=== PATIENT | male | born 1950 | race Caucasian/White ===

== ENCOUNTER 2021-08-09 11:38 | Outpatient (REF) | payer OTHER, SELFPAY ==
[2021-08-09 14:06] LABS: Hematocrit 43.4 % (42-52); Hemoglobin 14.4 g/dl (14.0-18.0); Mean Corpuscular HGB Conc 33.2 g/dl (31.0-36.0); Mean Corpuscular Hemoglobin 32.1 pg (27.0-33.0); Mean Corpuscular Volume 96.7 fL (80-98); Mean Platelet Volume 11.1 fL (9.4-12.4); Platelet Count 230 X10*3/uL (160-400); Red Blood Count 4.49 X10*6/uL (4.60-5.80); Red Cell Distribution Width 12.4 % (11.0-16.0); White Blood Count 6.6 X10*3/uL (4.8-10.8)
[2021-08-09 14:34] LABS: Alanine Aminotransferase 19 U/L (0-40); Anion Gap 12 (12-20); Aspartate Amino Transferase 19 U/L (5-37); Blood Urea Nitrogen 18 mg/dL (9-16); Calcium 9.7 mg/dL (8.4-10.2); Carbon Dioxide 28 mmol/L (22-29); Chloride 105 mmol/L (96-108); Estimated Glomerular Filt Rate > 60; Glucose Fasting 92 mg/dL (60-99); Potassium 4.9 mmol/L (3.3-5.1); Sodium 140 mmol/L (135-145); Total Protein 6.9 g/dL (6.5-8.0)
[2021-08-09 14:35] LABS: Albumin Level 4.6 g/dL (3.5-5.0); Alkaline Phosphatase 66 U/L (39-117); Cholesterol 153 mg/dL; HDL Cholesterol 48 mg/dL; LDL Cholesterol Calculated 92 mg/dl; Triglycerides 68 mg/dL
[2021-08-09 14:43] LABS: Prostate Specific Antigen Scr < 0.05 ng/mL (<0.05-4.0)
== END 2021-08-09 11:39 | disposition home or self-care (01) ==
LOC: HO.HMGCLDS 11:38
PROVIDERS: PCP Internal Medicine; Visit Provider Internal Medicine
DX: Z12.5 Encounter for screening for malignant neoplasm of prostate (principal); E78.5 Hyperlipidemia, unspecified; I25.10 Atherosclerotic heart disease of native coronary artery without angina pectoris
CPT/HCPCS: 36415; 80053; 80061; 84153; 85027

== ENCOUNTER 2021-08-23 07:13 | Outpatient (REF) | payer OTHER, SELFPAY ==
--- NOTE | ~2021-08-23 | XR_ITS ---
EXAMINATION: XR SHOULDER, RIGHT CLINICAL INFORMATION: Pain. COMPARISON: None TECHNIQUE: Three views of the right shoulder. FINDINGS: There is mild acromioclavicular osteoarthritis. Glenohumeral joint is well preserved. No fracture. Alignment is anatomic. Soft tissues are normal with no abnormal calcifications. XR/XR shoulder RT min 2V IMPRESSION: No acute fractures or malalignment. Mild acromioclavicular osteoarthritis.
== END 2021-08-23 07:14 | disposition home or self-care (01) ==
LOC: HO.HOSX 07:13
PROVIDERS: Visit Provider Physician Assistant
DX: M75.101 Unspecified rotator cuff tear or rupture of right shoulder, not specified as traumatic (principal)
CPT/HCPCS: 73030; J1040

== ENCOUNTER → 2021-10-04 08:33 | Outpatient (BNVA) | payer OTHER, SELFPAY | PROVIDERS: Visit Provider Physician Assistant ==

== ENCOUNTER → 2021-10-11 10:45 | Outpatient (BNVA) | payer OTHER, SELFPAY | PROVIDERS: Referring Provider Internal Medicine; Visit Provider Nurse Practitioner Family ==

== ENCOUNTER 2021-12-01 09:00 | Outpatient (RCR) | payer OTHER, SELFPAY ==
--- NOTE | 2021-11-01 09:58 | MHC.PT.EP ---
[facility] [place] Office [place] Office [place] Office [address] [phone] F: [phone] F: [phone] F: [phone] F: [phone] Physical Therapy Plan of Care Date of Evaluation: Date of Surgery: n/a Diagnosis: Rupture of R shoulder Assessment: Patient is a 71 year old R handed male who presents with s/s consistent with R shoulder pain. He does not work but likes to tend to his house and run errands. Patient past medical history includes NM and prostate cancer. Current impairments include pain, posture, ROM, strength, activity tolerance and functional mobility. Functional limitations include decreased ability to reaching overhead, behind back, carrying, pushing, pulling, changing light bulbs, sleeping on R side, and perform weight bearing activities.. Patient is motivated with good rehab potential. Skilled PT will address impairments and functional limitations in order to achieve goals. Frequency and Duration: The patient will be seen 2x/week for 5 weeks Short Term Goals: I with HEP - 2 weeks AROM flexion 120, abd 120 - 3 weeks ER to 55 - 3 weeks Half-Way Goals: Restore R ER/IR strength to 4-/5 - 5 weeks ER/IR arc to 145 - 5 weeks Flex/abd AROM to 140 - 5 weeks Treatment Plan: Modalities to reduce pain, spasms and effusion. Manual therapy to restore motion and function. Therapeutic exercise to improve strength and flexibility. Neuromuscular re-education for posture and balance. Therapeutic activities to return to functional activities of daily living. Electronically signed by: Duong Quinn PT Please sign and return to therapist. Thank you for your referral.
--- NOTE | 2022-05-12 13:49 | MHC.PT.DC ---
[facility] [place] Office [place] Office [place] Office [address] Saab [address] [phone] F: [phone] F: [phone] F: [phone] F: [phone] Physical Therapy Discharge Report Diagnosis: Rupture of R shoulder Date of Surgery: n/a Date of Evaluation: 11/01/21 Date of Discharge: 01/12/22 Treatments to Date: 4 Cancellations to Date: 0 No Shows to Date: 0 Discharge Status: Patient Elected to Stop Discharge Summary: Pt did not return after last visit and has fair/poor compliance with HEP and progress in formal PT. 12/01: Significant time w/ income tax consultant for discussion: he reports fair-poor HEP compliance thus far, states his pain is about the same and actually worse after his injection, encouraged to re-schedule f/u with orthopedics he had cancelled. ed on pain limited exercise and daily activity, HEP in pain limited capacity, limiting over use activities. 11/24/21: pt returns after illness. progressed some with ROM, strength. Still with significant shoulder tissue tension. 11/03/21: GH head ant in joint, to continue joint mobs p/a. continue to progress intervention for posture, ROM. Patient is a 71 year old R handed male who presents with s/s consistent with R shoulder pain. He does not work but likes to tend to his house and run errands. Patient past medical history includes AR and prostate cancer. Current impairments include pain, posture, ROM, strength, activity tolerance and functional mobility. Functional limitations include decreased ability to reaching overhead, behind back, carrying, pushing, pulling, changing light bulbs, sleeping on R side, and perform weight bearing activities.. Patient is motivated with good rehab potential. Skilled PT will address impairments and functional limitations in order to achieve goals. Electronically signed by: Duong Quinn, PT Please sign and return to therapist. Thank you for your referral.
== END 2022-05-12 13:49 | disposition home or self-care (01) ==
LOC: HO.PTCHIC 09:00
PROVIDERS: Visit Provider Physician Assistant
DX: M75.101 Unspecified rotator cuff tear or rupture of right shoulder, not specified as traumatic (principal)
CPT/HCPCS: 97110; 97140; 97162

== ENCOUNTER 2021-12-18 09:12 | Outpatient (REF) | payer OTHER, SELFPAY ==
[2021-12-18 11:04] LABS: MANUAL DIFF FLAG NO
[2021-12-18 11:16] LABS: Basophils Percent Auto 0.5 % (0-2); Eosinophils Absolute Auto 0.1 X10*3/uL (0.0-0.4); Eosinophils Percent Auto 1.7 % (0-4); Hemoglobin 14.1 g/dl (14.0-18.0); Imm Gran Abs Auto 0.02 X10*3/uL (0.00-0.03); Imm Gran Pct Auto 0.3 % (0.0-0.4); Lymphocytes Absolute Auto 1.4 X10*3/uL (1.2-4.9); Lymphocytes Percent Auto 23.9 % (20-40); Mean Corpuscular HGB Conc 32.8 g/dl (31.0-36.0); Mean Corpuscular Hemoglobin 32.3 pg (27.0-33.0); Mean Corpuscular Volume 98.6 fL (80.0-98.0); Mean Platelet Volume 11.3 fL (9.4-12.4); Monocytes Absolute Auto 0.7 X10*3/uL (0.1-1.2); Monocytes Percent Auto 11.3 % (2-11); Neutrophils Absolute Auto 3.8 x10*3/uL (2.0-8.3); Neutrophils Percent Auto 62.3 % (45-73); Platelet Count 201 X10*3/uL (160-400); Red Blood Count 4.36 X10*6/uL (4.60-5.80); Red Cell Distribution Width 11.9 % (11.0-16.0)
[2021-12-18 11:41] LABS: Anion Gap 11 (12-20); Blood Urea Nitrogen 17 mg/dL (9-16); Calcium 9.7 mg/dL (8.4-10.2); Carbon Dioxide 29 mmol/L (22-29); Chloride 106 mmol/L (96-108); Cholesterol 143 mg/dL; Estimated Glomerular Filt Rate > 60; Glucose Random 95 mg/dL (60-115); HDL Cholesterol 41 mg/dL; LDL Cholesterol Calculated 85 mg/dl; Potassium 4.6 mmol/L (3.3-5.1); Sodium 141 mmol/L (135-145); Triglycerides 85 mg/dL
== END 2021-12-18 09:13 | disposition home or self-care (01) ==
LOC: HO.HMGCLDS 09:12
PROVIDERS: PCP Internal Medicine; Visit Provider Nurse Practitioner Family
DX: I25.2 Old myocardial infarction (principal)
CPT/HCPCS: 36415; 80048; 80061; 85025

== ENCOUNTER 2022-04-04 08:31 | Outpatient (REF) | payer OTHER, SELFPAY ==
[2022-04-04 11:31] LABS: Hematocrit 42.3 % (42.0-52.0); Hemoglobin 13.9 g/dl (14.0-18.0); Mean Corpuscular HGB Conc 32.9 g/dl (31.0-36.0); Mean Corpuscular Hemoglobin 32.1 pg (27.0-33.0); Mean Corpuscular Volume 97.7 fL (80.0-98.0); Mean Platelet Volume 11.8 fL (9.4-12.4); Platelet Count 193 X10*3/uL (160-400); Red Blood Count 4.33 X10*6/uL (4.60-5.80); Red Cell Distribution Width 12.7 % (11.0-16.0); White Blood Count 5.1 X10*3/uL (4.8-10.8)
[2022-04-04 11:48] LABS: Alanine Aminotransferase 35 U/L (0-40); Albumin Level 4.6 g/dL (3.5-5.0); Alkaline Phosphatase 62 U/L (39-117); Anion Gap 12 (12-20); Aspartate Amino Transferase 29 U/L (5-37); Bilirubin Total 0.5 mg/dL (0.0-1.0); Blood Urea Nitrogen 19 mg/dL (9-16); Carbon Dioxide 28 mmol/L (22-29); Chloride 103 mmol/L (96-108); Cholesterol 155 mg/dL; Estimated Glomerular Filt Rate > 60; Glucose Fasting 96 mg/dL (60-99); HDL Cholesterol 51 mg/dL; LDL Cholesterol Calculated 88 mg/dl; Potassium 4.4 mmol/L (3.3-5.1); Sodium 139 mmol/L (135-145); Total Protein 7.2 g/dL (6.5-8.0); Triglycerides 84 mg/dL
== END 2022-04-04 08:32 | disposition home or self-care (01) ==
LOC: HO.HMGCLDS 08:31
PROVIDERS: Visit Provider Internal Medicine
DX: I25.10 Atherosclerotic heart disease of native coronary artery without angina pectoris (principal); I42.9 Cardiomyopathy, unspecified; E78.5 Hyperlipidemia, unspecified
CPT/HCPCS: 36415; 80053; 80061; 85027

== ENCOUNTER 2022-04-26 14:35 | Outpatient (REF) | payer OTHER, SELFPAY ==
[2022-04-26 15:27] LABS: Influenza A PCR NEGATIVE (Negative); Influenza B PCR NEGATIVE (Negative); Resp Syncy Virus RNA Qual PCR NEGATIVE (Negative); SARS COV2 PCR INHOUSE POSITIVE (Negative)
== END 2022-04-26 14:36 | disposition home or self-care (01) ==
LOC: HO.LNP 14:35
PROVIDERS: Visit Provider Physician Assistant
DX: Z20.822 Contact with and (suspected) exposure to COVID-19 (principal); J06.9 Acute upper respiratory infection, unspecified
CPT/HCPCS: 0241U

== ENCOUNTER 2023-01-14 08:36 | Outpatient (REF) | payer OTHER, SELFPAY ==
[2023-01-14 11:43] LABS: MANUAL DIFF FLAG NO
[2023-01-14 11:48] LABS: Basophils Percent Auto 0.5 % (0-2); Eosinophils Absolute Auto 0.1 X10*3/uL (0.0-0.4); Eosinophils Percent Auto 1.7 % (0-4); Hematocrit 42.8 % (42.0-52.0); Imm Gran Abs Auto 0.01 X10*3/uL (0.00-0.03); Imm Gran Pct Auto 0.2 % (0.0-0.4); Lymphocytes Absolute Auto 1.5 X10*3/uL (1.2-4.9); Mean Corpuscular HGB Conc 32.7 g/dl (31.0-36.0); Mean Corpuscular Hemoglobin 32.3 pg (27.0-33.0); Mean Corpuscular Volume 98.6 fL (80.0-98.0); Mean Platelet Volume 11.2 fL (9.4-12.4); Monocytes Absolute Auto 0.8 X10*3/uL (0.1-1.2); Monocytes Percent Auto 13.1 % (2-11); Neutrophils Absolute Auto 3.5 x10*3/uL (2.0-8.3); Neutrophils Percent Auto 59.5 % (45-73); Platelet Count 204 X10*3/uL (160-400); Red Blood Count 4.34 X10*6/uL (4.60-5.80); Red Cell Distribution Width 12.2 % (11.0-16.0); White Blood Count 5.9 X10*3/uL (4.8-10.8)
[2023-01-14 12:07] LABS: Alanine Aminotransferase 47 U/L (0-40); Albumin Level 4.2 g/dL (3.5-5.0); Alkaline Phosphatase 61 U/L (39-117); Anion Gap 12 (12-20); Aspartate Amino Transferase 34 U/L (5-37); Bilirubin Total 0.7 mg/dL (0.0-1.0); Blood Urea Nitrogen 22 mg/dL (9-16); Calcium 9.3 mg/dL (8.4-10.2); Carbon Dioxide 28 mmol/L (22-29); Chloride 106 mmol/L (96-108); Cholesterol 161 mg/dL; Estimated Glomerular Filt Rate > 60; Glucose Fasting 94 mg/dL (60-99); HDL Cholesterol 53 mg/dL; LDL Cholesterol Calculated 90 mg/dl; Potassium 4.8 mmol/L (3.3-5.1); Sodium 141 mmol/L (135-145); Total Protein 6.6 g/dL (6.5-8.0); Triglycerides 93 mg/dL
[2023-01-14 12:27] LABS: TSH reflex Free T4 5.53 uIU/mL (0.32-4.0)
[2023-01-14 13:21] LABS: Free T4 (Free Thyroxine) 0.89 ng/dL (0.71-1.85)
== END 2023-01-14 08:37 | disposition home or self-care (01) ==
LOC: HO.HMGCLDS 08:36
PROVIDERS: PCP Internal Medicine; Visit Provider Internal Medicine
DX: I25.10 Atherosclerotic heart disease of native coronary artery without angina pectoris (principal); I48.91 Unspecified atrial fibrillation; R04.0 Epistaxis; E78.5 Hyperlipidemia, unspecified
CPT/HCPCS: 36415; 80053; 80061; 84439; 84443; 85025

== ENCOUNTER 2023-02-27 07:23 | Outpatient (REF) | payer OTHER, SELFPAY ==
[2023-02-27 12:27] LABS: TSH reflex Free T4 5.74 uIU/mL (0.32-4.0)
[2023-02-27 13:51] LABS: Free T4 (Free Thyroxine) 0.93 ng/dL (0.71-1.85)
[2023-02-28 14:09] LABS: Triiodothyronine T3 Free 3.2 pg/mL (2.3-4.2)
== END 2023-02-27 07:24 | disposition home or self-care (01) ==
LOC: HO.HMGCLDS 07:23
PROVIDERS: PCP Internal Medicine; Visit Provider Internal Medicine
DX: E03.9 Hypothyroidism, unspecified (principal)
CPT/HCPCS: 36415; 84439; 84443; 84481

== ENCOUNTER 2023-06-05 08:50 | Outpatient (REF) | payer OTHER, SELFPAY | END 2023-06-05 08:51 | disposition home or self-care (01) | LOC: HO.HMGCLDS 08:50 | PROVIDERS: PCP Internal Medicine; Visit Provider Internal Medicine | DX: E03.9 Hypothyroidism, unspecified (principal) | CPT/HCPCS: 36415; 84439; 84443 ==

== ENCOUNTER 2024-03-07 10:12 | Outpatient (AMB) | payer OTHER, SELFPAY ==
[2024-03-07 10:25] VITALS: BP 118/78; PULSE 81; O2SAT 98; BMI 27.1
--- NOTE | 2024-03-07 10:25 | A.OFFPC_ITS ---
Vital Signs 03/07/24 10:25 Height 5 ft 5 in Weight 163 lb BMI 27.1 BP 118/78 Blood Pressure Location Lt brachial Position Sitting Pulse 81 Pulse Source Pulse Oximeter Pulse Oximetry (%) 98 Oxygen Delivery Method Room Air Intake Visit Reasons: Annual PE Intake Note: Pt is here today for PE. Allergies No Known Allergies Allergy (Verified 03/07/24 10:25) Medication List - Last Reconciled 03/07/24 by Lucie Bowen MD aspirin 81 mg PO DAILY bisacodyl (Dulcolax (bisacodyl)) 10 mg (2 x 5 mg) PO ONCE 1 day losartan 25 mg PO DAILY metoprolol succinate ER 50 mg PO DAILY polyethylene glycol 3350 (Miralax) 238 grams PO ONCE rosuvastatin (Crestor) 40 mg PO DAILY Tobacco use date assessed: 03/07/24 Fall risk assessment: No Falls in past year Last assessed Fall Risk: 03/07/24 Dental Screening Dental Screen Date: 03/07/24 Did you have a dental visit in the last 12 months?: Yes Did you have a dental problem in the last 6 months where you did not have access to dental care?: No Was dental information given to patient?: Patient has dentist HPI Annual PE HPI0 Details Patient presents for physical PFSH Medical History (Updated 03/07/24 @ 15:35 by Lucie Bowen MD) Anxiety Cardiomyopathy A-fib Right shoulder pain Prostate CA Annual physical exam CAD (coronary artery disease) Hyperlipidemia History of kidney stones Surgical History Hx of cholecystectomy Hx of colonoscopy History of prostate surgery Family History Father No problems noted. Mother Heart problem Social History Housing: House Patient Tobacco Use Status: Never used Tobacco e-Cigarette/Vaping Use: Never Used Current occupational status: retired Current occupation: rt handed Cognitive needs: No Hearing needs: No Vision needs: Yes Questionnaire PHQ-9 Over the last 2 weeks, how often have you been bothered by any of the following problems? 1. Little interest or pleasure in doing things: not at all 2. Feeling down, depressed, or hopeless: not at all 3. Trouble falling or staying asleep, or sleeping too much: not at all 4. Feeling tired or having little energy: not at all 5. Poor appetite or overeating: not at all 6. Feeling bad about yourself - or that you are a failure or have let yourself or your family down: not at all 7. Trouble concentrating on things, such as reading the newspaper or watching television: not at all 8. Moving or speaking so slowly that other people could have noticed. Or the opposite - being so fidgety or restless that you have been moving around a lot more than usual: not at all 9. Thoughts that you would be better off or of hurting yourself in some way: not at all Total score: 0 Depression Screening Interpretation: Negative Depression Screening Done: Yes Source: Developed by Drs. Jose G Scherer, Janki Barbour, Cuate Coughlin and colleagues, with an educational nani from [employer]. Thrive Questionnaire Date Thrive assessed: 03/07/24 I am a: Patient What is your living situation today?: I have a steady place to live Within the past 12 months, did the food you bought not last and you didn't have the money to get more?: Never true Within the past 12 months, did you worry whether your food would run out before you got money to buy more?: Never true Do you have trouble paying for medicines?: No Do you have trouble getting transportation to medical appointments?: No Do you have trouble paying your heating and electricity bill?: No Do you have trouble taking care of your child, family member or friend?: No Do you have trouble with day-to-day activities such as bathing, preparing meals, shopping, managing finances, etc.?: No Are you currently unemployed and looking for a job?: No Are you interested in more education?: No Please select the resources that you would like help with: None THRIVE Score: 0 AUDIT C Alcohol Use Questionnaire (AUDIT-C) 1. How often do you have a drink containing alcohol?: Never 3. How often do you have six or more drinks on one occasion?: Never Total Score: 0 GABBY-7 AMB Questionnaire GABBY-7 Date GABBY - 7 assessed: 03/07/24 Feeling nervous, anxious, or on edge: 0 = Not at all Not being able to stop or control worryin = Not at all Worrying too much about different things: 0 = Not at all Trouble relaxin = Not at all Being so restless that it is hard to sit still: 0 = Not at all Becoming easily annoyed or irritable: 0 = Not at all Feeling afraid as if something awful might happen: 0 = Not at all Total GABBY-7 score (0-4 normal; 5-9 mild; 10-14 moderate; 15-21 severe): 0 Source: Developed by Drs. Jose G Scherer, Janki Barbour, Cuate Coughlin and colleagues, with an educational nani from [employer]. Review of Systems Const All systems reviewed & are unremarkable except as noted in HPI and below Reports no additional complaints Eyes Reports no additional complaints ENT Reports no additional complaints Card Reports no additional complaints Resp Reports no additional complaints GI Reports no additional complaints Reports no additional complaints Physical exam (Primary Care) Vital Signs: Last Vital Signs Pulse 81 03/07/24 10:25 BP 118/78 03/07/24 10:25 Pulse Ox 98 03/07/24 10:25 Oxygen Delivery Method Room Air 03/07/24 10:25 BMI result Body Mass Index 27.1 Tobacco/Smoking Status: Tobacco use Status Tobacco use date assessed 03/07/24 03/07/24 10:37 Patient Tobacco Use Status Never used Tobacco 03/07/24 10:37 e-Cigarette/Vaping Use Never Used 03/07/24 10:27 PHQ-9: PHQ-9 Score PHQ-9: Total score 0 03/07/24 11:16 Depression Screening Interpretation: Negative Thrive Assessment: Date of Thrive Assessment Date Thrive assessed 03/07/24 03/07/24 10:37 Const General: no acute distress HENMT Head: Yes normal to inspection Ears: hearing grossly normal bilaterally Face and sinus: Yes normal facial exam Throat: Yes posterior oropharynx normal Eyes General: appearance normal, both eyes and all related structures Neck Neck: Yes no lymphadenopathy and Yes supple Resp Effort & Inspection: normal respiratory effort Auscultation: clear to auscultation bilaterally Cardio Rhythm: regular rhythm Heart sounds: S1 normal heart sound present and S2 normal heart sound present GI Inspection: Yes normal to inspection Palpation (GI): Soft to palpation Percussion: Yes normal to percussion Auscultation: normal bowel sounds Assessment and Plan Assessment & Plan (1) Hyperlipidemia: Code(s): E78.5 - Hyperlipidemia, unspecified Plan: Continue crestor (2) Prostate CA: Comment: S/P prostactectomy 2010, f/u Dr. Stratton Code(s): C61 - Malignant neoplasm of prostate Plan: Follow-up with urology (3) A-fib: Comment: rate controlled, s/p Watchman procedure, f/u with [facility] Code(s): I48.91 - Unspecified atrial fibrillation Plan: Follow-up with cardiology off anticoagulation (4) Cardiomyopathy: Comment: Echo EF 35%,lat wall akinesis 02/15, f/u with Cardiology Code(s): I42.9 - Cardiomyopathy, unspecified Plan: Follow-up with Cardiology continue current medications (5) Hypothyroidism: Code(s): E03.9 - Hypothyroidism, unspecified Plan: Monitor TSH level Orders: Orders Comprehensive [facility]. Panel Fast Today C61 - Malignant neoplasm of prostate, E03.9 - Hypothyroidism, unspecified, E78.5 - Hyperlipidemia, unspecified, I42.9 - Cardiomyopathy, unspecified, I48.91 - Unspecified atrial fibrillation TSH reflex Free T4 Today C61 - Malignant neoplasm of prostate, E03.9 - Hypothyroidism, unspecified, E78.5 - Hyperlipidemia, unspecified, I42.9 - Cardiomyopathy, unspecified, I48.91 - Unspecified atrial fibrillation Lipid Panel Today C61 - Malignant neoplasm of prostate, E03.9 - Hypothyroidism, unspecified, E78.5 - Hyperlipidemia, unspecified, I42.9 - Cardiomyopathy, unspecified, I48.91 - Unspecified atrial fibrillation UA w Microscopic Today C61 - Malignant neoplasm of prostate, E03.9 - Hypothyroidism, unspecified, E78.5 - Hyperlipidemia, unspecified, I42.9 - Cardiomyopathy, unspecified, I48.91 - Unspecified atrial fibrillation Complete Blood Count Auto Diff Today C61 - Malignant neoplasm of prostate, E0 3.9 - Hypothyroidism, unspecified, E78.5 - Hyperlipidemia, unspecified, I42.9 - Cardiomyopathy, unspecified, I48.91 - Unspecified atrial fibrillation Comprehensive [facility]. Panel Fast 1 Year E03.9 - Hypothyroidism, unspecified, E78.5 - Hyperlipidemia, unspecified, I42.9 - Cardiomyopathy, unspecified Complete Blood Count Auto Diff 1 Year E03.9 - Hypothyroidism, unspecified, E78.5 - Hyperlipidemia, unspecified, I42.9 - Cardiomyopathy, unspecified Lipid Panel 1 Year E03.9 - Hypothyroidism, unspecified, E78.5 - Hyperlipidemia, unspecified, I42.9 - Cardiomyopathy, unspecified TSH reflex Free T4 1 Year E03.9 - Hypothyroidism, unspecified, E78.5 - Hyperlipidemia, unspecified, I42.9 - Cardiomyopathy, unspecified Referrals Cologuard Test Z12.11 - Encounter for screening for malignant neoplasm of colon, Z12.12 - Encounter for screening for malignant neoplasm of rectum Medications: Refilled rosuvastatin (Crestor) 40 mg PO DAILY 90 tabs 3RF Discontinued polyethylene glycol 3350 (Miralax) As directed by gastroenterology department at [facility] Discontinued Reason: Doctor's Order 238 grams PO ONCE 238 grams 0RF Z12.11 - Encounter for screening for malignant neoplasm of colon Coding Level of Care Code Est Pt Prev Care >65y(93674) Diagnoses Hyperlipidemia E78.5 Prostate CA C61 A-fib I48.91 Cardiomyopathy I42.9 Hypothyroidism E03.9
== END 2024-03-07 11:25 | disposition home or self-care (01) ==
PROVIDERS: PCP Internal Medicine; Visit Provider Internal Medicine
DX: Z00.00 Encounter for general adult medical examination without abnormal findings (principal); C61 Malignant neoplasm of prostate; I48.91 Unspecified atrial fibrillation; I42.9 Cardiomyopathy, unspecified; E78.5 Hyperlipidemia, unspecified; E03.9 Hypothyroidism, unspecified
CPT/HCPCS: 99397

== ENCOUNTER 2024-03-08 06:59 | Outpatient (REF) | payer OTHER, SELFPAY ==
[2024-03-08 10:38] LABS: MANUAL DIFF FLAG NO
[2024-03-08 10:44] LABS: Basophils Percent Auto 0.6 % (0-2); Eosinophils Absolute Auto 0.1 X10*3/uL (0.0-0.4); Hematocrit 39.7 % (42.0-52.0); Imm Gran Abs Auto 0.01 X10*3/uL (0.00-0.03); Imm Gran Pct Auto 0.2 % (0.0-0.4); Lymphocytes Absolute Auto 1.4 X10*3/uL (1.2-4.9); Lymphocytes Percent Auto 21.9 % (20-40); Mean Corpuscular HGB Conc 32.7 g/dl (31.0-36.0); Mean Corpuscular Hemoglobin 31.9 pg (27.0-33.0); Mean Corpuscular Volume 97.5 fL (80.0-98.0); Mean Platelet Volume 11.6 fL (9.4-12.4); Monocytes Absolute Auto 0.8 X10*3/uL (0.1-1.2); Monocytes Percent Auto 11.9 % (2-11); Neutrophils Absolute Auto 4.1 x10*3/uL (2.0-8.3); Neutrophils Percent Auto 64.4 % (45-73); Platelet Count 179 X10*3/uL (160-400); Red Blood Count 4.07 X10*6/uL (4.60-5.80); Red Cell Distribution Width 12.6 % (11.0-16.0); White Blood Count 6.3 X10*3/uL (4.8-10.8)
[2024-03-08 10:58] LABS: Appearance Urine Clear; Color Urine Yellow; Glucose Urine UA Negative (Negative); Leukocyte Esterase Urine Negative (Negative); Nitrite Urine Negative (Negative); PH 5.5 (5.0-9.0); Specific Gravity - Urine 1.025 (1.005-1.025); Urine Blood Negative (Negative); Urine Ketones Negative (Negative); Urine Protein Negative (Neg-Trace)
[2024-03-08 11:05] LABS: Bacteria Urine None Seen (None Seen); Hyaline Casts Urine 0-2 /LPF (0-2); RBC Urine 0-2 /HPF (0-2); Squamous Epithelial Cell Urine 0-2 /HPF (0-2); WBC Urine 0-5 /HPF (0-5)
[2024-03-08 11:43] LABS: Alanine Aminotransferase 22 U/L (0-40); Albumin Level 3.9 g/dL (3.5-5.0); Alkaline Phosphatase 55 U/L (39-117); Anion Gap 11 (12-20); Aspartate Amino Transferase 23 U/L (5-37); Bilirubin Total 0.5 mg/dL (0.0-1.0); Blood Urea Nitrogen 19 mg/dL (9-16); Calcium 9.2 mg/dL (8.4-10.2); Carbon Dioxide 26 mmol/L (22-29); Chloride 110 mmol/L (96-108); Cholesterol 125 mg/dL (<200); Estimated Glomerular Filt Rate > 60; Glucose Fasting 90 mg/dL (60-99); HDL Cholesterol 42 mg/dL (>40); LDL Cholesterol Calculated 69 mg/dL (<100); Sodium 143 mmol/L (135-145); Total Protein 6.5 g/dL (6.5-8.0); Triglycerides 73 mg/dL (<150)
== END 2024-03-08 07:00 | disposition home or self-care (01) ==
LOC: HO.HMGCLDS 06:59
PROVIDERS: PCP Internal Medicine; Visit Provider Internal Medicine
DX: E03.9 Hypothyroidism, unspecified (principal); I42.9 Cardiomyopathy, unspecified; I48.91 Unspecified atrial fibrillation; C61 Malignant neoplasm of prostate; E78.5 Hyperlipidemia, unspecified
CPT/HCPCS: 36415; 80053; 80061; 81001; 84443; 85025

== ENCOUNTER 2024-03-15 11:04 | Outpatient (REF) | payer OTHER, SELFPAY ==
[2024-03-15 17:06] LABS: Iron 97 mcg/dL (45-160); Percent Iron Saturation 35 % (15-50); Total Iron Binding Capacity 276 mcg/dL (228-428); Unsaturated Iron Binding 179 ug/dL
[2024-03-15 20:10] LABS: Folate 16.3 ng/mL (> or = 4.0)
[2024-03-17 00:52] LABS: Vitamin B12 492 pg/mL (200-900)
== END 2024-03-15 11:05 | disposition home or self-care (01) ==
LOC: HO.HMGCLDS 11:04
PROVIDERS: PCP Internal Medicine; Visit Provider Internal Medicine
DX: D64.9 Anemia, unspecified (principal)
CPT/HCPCS: 36415; 82607; 82746; 83540

== ENCOUNTER 2025-03-26 08:21 | Outpatient (REF) | payer OTHER, SELFPAY ==
--- OUTSIDE RECORDS SUMMARY | 2025-03-26 08:35 | XMS_ITS | Clinical Summary ---
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 Stratton Cervical radiculopathy 12/19/2014 DX:Cervic al radiculopathy Erectile dysfunction 12/19/2014 DX:Erectile dysfunction Cervical spinal stenosis 12/19/2014 DX:Cerv ical spinal stenosis; COMMENT: C4-C5 Urinary incontinence 12/19/2014 DX:Urinary incontinence; COMMENT: Advance male sling placed SBO (small bowel obstruction ) ([facility] V24, [facility] V28) 12/19/2014 DX:SBO (small bowel obstruc tion) ([facility]); COMMENT: 10/10 secondary to adhesions Positive PPD 12/19/2014 DX:Positive PPD; COMMENT: Neg CXR 05/10 Vitamin D deficiency 12/19/2014 DX:Vitamin D deficiency Rotator cuff tear 12/19/2014 DX:Rotator cuf f tear; COMMENT: Right 05/08 Kidney stone 12/19/2014 DX:Kidney stone; COMMENT: 5x6.5 mm distal right ureteral stone 01/01 Anemia DX:Anemia Atrial fibrillation ([facility] V24, [facility] V28) DX:Atrial fibrillation ([facility]) ; COMMENT: [facility] Carotid stenosis 12/2018 DX:Carotid sten osis; COMMENT: Right-sided, severe Carotid stenosis, right DX:Carot id stenosis, right History of ventricular tachycardia DX:History of ventricular tachycardia; COMMENT: Nonsustained. 32 beats. Associated with cardiac cath. H/O non-ST elevation myocard ial infarction (NSTEMI) DX:H/O non-ST elevation myoc ardial infarction (NSTEMI) Ischemic cardiomyopathy DX:Ische edouard cardiomyopathy Moderate mitral regurgitation 11/2019 DX :Moderate mitral regurgitation Social History Tobacco Use Types Packs/Day Years Used Date Smoking Tobacco: Never Smokeless Tobacco: Never Alcohol Use Standard Drinks/Week Comments Not Asked 0 (1 standard drink = 0.6 oz pur e alcohol) Sex and Gender Information Value Date Recorded Sex Assigned at Not on file Legal Sex Male 9:37 PM EST Gender Identity Not on file Sexual Orientation Not on file Obstetrics History Plan of Treatment Health Maintenance Due Date Last Done Comments DTaP,Tdap,and Td Vaccines (1 - Tdap) 02/09/1971 Pneumococcal Vaccine: 50+ Ye ars (1 of 1 - PCV) 02/09/2002 Zoster Vaccines (1 of 2) 02/09/2002 COVID-19 Vaccine ( - 2023-2 5 season) 2024 Influenza Vaccine (Season Ended) 2025 RSV Immunization Adult Patie nts (1 - 1-dose 75+ series) 02/09/2027 HIB Vaccines Aged Out No longer eligi ble based on patient's age to complete this topic HPV Vaccines Aged Out No longer eligi ble based on patient's age to complete this topic Hepatitis A Vaccines Aged Out No long er eligible based on patient's age to complete this topic Hepatitis B Vaccines Aged Out No long er eligible based on patient's age to complete this topic IPV Vaccines Aged Out No longer eligi ble based on patient's age to complete this topic MMR Vaccines Aged Out No longer eligi ble based on patient's age to complete this topic Meningococcal ACWY Vaccine Aged Out N o longer eligible based on patient's age to complete this topic Meningococcal B Vaccine Aged Out No l onger eligible based on patient's age to complete this topic RSV Immunization Patients Un sydni 20 months Aged Out No longer eligible b ased on patient's age to complete this topic Varicella Vaccines Aged Out No longer eligible based on patient's age to complete this topic
[2025-03-26 10:01] LABS: MANUAL DIFF FLAG NO
[2025-03-26 10:07] LABS: Basophils Absolute Auto 0.1 X10*3/uL (0.0-0.2); Basophils Percent Auto 0.9 % (0-2); Eosinophils Absolute Auto 0.1 X10*3/uL (0.0-0.4); Hematocrit 42.2 % (42.0-52.0); Hemoglobin 13.8 g/dl (14.0-18.0); Imm Gran Abs Auto 0.01 X10*3/uL (0.00-0.03); Imm Gran Pct Auto 0.2 % (0.0-0.4); Lymphocytes Absolute Auto 1.6 X10*3/uL (1.2-4.9); Lymphocytes Percent Auto 29.9 % (20-40); Mean Corpuscular HGB Conc 32.7 g/dl (31.0-36.0); Mean Corpuscular Hemoglobin 32.1 pg (27.0-33.0); Mean Corpuscular Volume 98.1 fL (80.0-98.0); Mean Platelet Volume 11.2 fL (9.4-12.4); Monocytes Absolute Auto 0.8 X10*3/uL (0.1-1.2); Monocytes Percent Auto 14.6 % (2-11); Neutrophils Absolute Auto 2.8 x10*3/uL (2.0-8.3); Neutrophils Percent Auto 52.4 % (45-73); Platelet Count 210 X10*3/uL (160-400); Red Cell Distribution Width 12.7 % (11.0-16.0); White Blood Count 5.4 X10*3/uL (4.8-10.8)
[2025-03-26 11:09] LABS: Alanine Aminotransferase 34 U/L (0-40); Albumin Level 4.3 g/dL (3.5-5.0); Alkaline Phosphatase 59 U/L (39-117); Anion Gap 13 (12-20); Aspartate Amino Transferase 33 U/L (5-37); Bilirubin Total 0.7 mg/dL (0.0-1.0); Blood Urea Nitrogen 16 mg/dL (9-16); Calcium 9.6 mg/dL (8.4-10.2); Carbon Dioxide 26 mmol/L (22-29); Chloride 106 mmol/L (96-108); Cholesterol 147 mg/dL (<200); Estimated Glomerular Filt Rate > 60; Glucose Fasting 87 mg/dL (60-99); HDL Cholesterol 47 mg/dL (>40); LDL Cholesterol Calculated 78 mg/dL (<100); Potassium 4.1 mmol/L (3.3-5.1); Sodium 141 mmol/L (135-145); Triglycerides 110 mg/dL (<150)
[2025-03-26 11:15] LABS: TSH reflex Free T4 2.77 uIU/mL (0.32-4.0)
== END 2025-03-26 08:22 | disposition home or self-care (01) ==
LOC: HO.HMGCLDS 08:21
PROVIDERS: PCP Internal Medicine; Visit Provider Internal Medicine
DX: E03.9 Hypothyroidism, unspecified (principal); I42.9 Cardiomyopathy, unspecified; E78.5 Hyperlipidemia, unspecified
CPT/HCPCS: 36415; 80053; 80061; 84443; 85025

== ENCOUNTER 2025-03-27 12:15 | Outpatient (AMB) | payer OTHER, SELFPAY ==
[2025-03-27 12:20] VITALS: BP 110/68; PULSE 70; O2SAT 97; BMI 26.8
--- NOTE | 2025-03-27 12:20 | A.OFFPC_ITS ---
Vital Signs 03/27/25 12:20 Height 5 ft 5 in Weight 161 lb BMI 26.8 BP 110/68 Blood Pressure Location Lt brachial Position Sitting Pulse 70 Pulse Source Pulse Oximeter Pulse Oximetry (%) 97 Oxygen Delivery Method Room Air Intake Visit Reasons: PE Intake Note: Pt is here today for PE. Director Of Accreditation Required: No Accompanied by: Self / Same As Patient Allergies No Known Allergies Allergy (Verified 03/27/25 12:21) Medication List - Last Reconciled 03/27/25 by Lucie Bowen MD aspirin 81 mg PO DAILY losartan 25 mg PO DAILY metoprolol succinate ER 50 mg PO DAILY rosuvastatin (Crestor) 40 mg PO DAILY Tobacco use date assessed: 03/27/25 Fall risk assessment: No Falls in past year Last assessed Fall Risk: 03/27/25 Dental Screening Dental Screen Date: 03/27/25 Did you have a dental visit in the last 12 months?: Yes Did you have a dental problem in the last 6 months where you did not have access to dental care?: No Was dental information given to patient?: Patient has dentist HPI PE HPI Details Patient presents for physical. He complains of worsening dyspnea on exertion and general fatigue after physical activity for over last few months. Patient denies chest pain palpitations PND orthopnea. He is established with Cardiology for chronic AFib, heart failure with reduced ejection fraction, moderate to severe mitral regurgitation status post Watchman device. [facility] Medical History (Updated 03/27/25 @ 14:37 by Lucie Bowen MD) Positive colorectal cancer screening using Cologuard test Mitral regurgitation Anxiety Cardiomyopathy A-fib Right shoulder pain Prostate CA Annual physical exam CAD (coronary artery disease) Hyperlipidemia History of kidney stones Surgical History Hx of cholecystectomy Hx of colonoscopy History of prostate surgery Family History Father No problems noted. Mother Heart problem Social History Housing: House Patient Tobacco Use Status: Never used Tobacco e-Cigarette/Vaping Use: Never Used Current occupational status: retired Current occupation: rt handed Cognitive needs: No Hearing needs: No Vision needs: Yes Questionnaire PHQ-9 Over the last 2 weeks, how often have you been bothered by any of the following problems? 1. Little interest or pleasure in doing things: not at all 2. Feeling down, depressed, or hopeless: not at all 3. Trouble falling or staying asleep, or sleeping too much: not at all 4. Feeling tired or having little energy: not at all 5. Poor appetite or overeating: not at all 6. Feeling bad about yourself - or that you are a failure or have let yourself or your family down: not at all 7. Trouble concentrating on things, such as reading the newspaper or watching television: not at all 8. Moving or speaking so slowly that other people could have noticed. Or the opposite - being so fidgety or restless that you have been moving around a lot more than usual: not at all 9. Thoughts that you would be better off or of hurting yourself in some way: not at all Total score: 0 Depression Screening Interpretation: Negative Depression Screening Done: Yes Source: Developed by Drs. Jose G Scherer, Janki Barbour, Cuate Coughlin and colleagues, with an educational nani from [employer]. Thrive Questionnaire Date Thrive assessed: 03/27/25 I am a: Patient What is your living situation today?: I have a steady place to live Within the past 12 months, did the food you bought not last and you didn't have the money to get more?: Never true Within the past 12 months, did you worry whether your food would run out before you got money to buy more?: Never true Do you have trouble paying for medicines?: No Do you have trouble getting transportation to medical appointments?: No Do you have trouble paying your heating and electricity bill?: No Do you have trouble taking care of your child, family member or friend?: No Do you have trouble with day-to-day activities such as bathing, preparing meals, shopping, managing finances, etc.?: No Are you currently unemployed and looking for a job?: No Are you interested in more education?: No Please select the resources that you would like help with: None Currently or been in a relationship where the following occur: No concerns reported THRIVE Score: 0 AUDIT C Alcohol Use Questionnaire (AUDIT-C) 1. How often do you have a drink containing alcohol?: Never 3. How often do you have six or more drinks on one occasion?: Never Total Score: 0 Score Reviewed/Action Taken: Yes GABBY-7 AMB Questionnaire GABBY-7 Date GABBY - 7 assessed: 03/27/25 Feeling nervous, anxious, or on edge: 0 = Not at all Not being able to stop or control worryin = Not at all Worrying too much about different things: 0 = Not at all Trouble relaxin = Not at all Being so restless that it is hard to sit still: 0 = Not at all Becoming easily annoyed or irritable: 0 = Not at all Feeling afraid as if something awful might happen: 0 = Not at all Total GABBY-7 score (0-4 normal; 5-9 mild; 10-14 moderate; 15-21 severe): 0 Source: Developed by Drs. Jose G Scherer, Janki Barbour, Cuate Coughlin and colleagues, with an educational nani from [employer]. GABBY-7 Assessment Billing GABBY-7 Assessment Tool: GABBY-7 Assessment 91638 Review of Systems Const All systems reviewed & are unremarkable except as noted in HPI and below Eyes Reports no additional complaints ENT Reports no additional complaints Card Reports no additional complaints Resp Reports no additional complaints GI Reports no additional complaints Reports no additional complaints Physical exam (Primary Care) Vital Signs: Last Vital Signs Pulse 70 03/27/25 12:20 BP 110/68 03/27/25 12:20 Pulse Ox 97 03/27/25 12:20 Oxygen Delivery Method Room Air 03/27/25 12:20 BMI result Body Mass Index 26.8 Tobacco/Smoking Status: Tobacco use Status Tobacco use date assessed 03/27/25 03/27/25 12:23 Patient Tobacco Use Status Never used Tobacco 03/27/25 12:23 e-Cigarette/Vaping Use Never Used 03/27/25 12:23 PHQ-9: PHQ-9 Score PHQ-9: Total score 0 03/27/25 12:26 Depression Screening Interpretation: Negative Thrive Assessment: Date of Thrive Assessment Date Thrive assessed 03/27/25 03/27/25 12:26 Currently or been in a relationship where the following occur: No concerns reported Const General: no acute distress HENMT Head: Yes normal to inspection Ears: hearing grossly normal bilaterally Eyes General: appearance normal, both eyes and all related structures Neck Neck: Yes no lymphadenopathy and Yes supple Resp Effort & Inspection: normal respiratory effort Auscultation: clear to auscultation bilaterally Cardio Rhythm: abnormal rhythm irregularly irregular Heart sounds: S1 normal heart sound present and S2 normal heart sound present GI Inspection: Yes normal to inspection Palpation (GI): Soft to palpation Percussion: Yes normal to percussion Auscultation: normal bowel sounds Coding Level of Care Code Est Pt Prev Care >65y(61126) Diagnoses Cardiomyopathy I42.9 A-fib I48.91 Prostate CA C61 Positive colorectal cancer screening using Cologuard test R19.5 Annual physical exam Z00.00 Hyperlipidemia E78.5 Additional Codes GABBY-7 Assessment Billing - GABBY-7 Assessment Tool: GABBY-7 Assessment 69777 ([id number]) Assessment & Plan Assessment & Plan (1) Cardiomyopathy: Comment: Echo EF 35%,lat wall akinesis 02/15, Echo 12/2024 ejection fraction 35-40%, moderate MR left atrium severely dilated, /u with Cardiology Code(s): I42.9 - Cardiomyopathy, unspecified Category: Medical Plan: Follow-up with cardiology (2) A-fib: Comment: rate controlled, patient failed multiple cardioversion and catheter ablations, s/p Watchman procedure for frequent nose bleeds, , f/u with [facility] Code(s): I48.91 - Unspecified atrial fibrillation Category: Medical Plan: Rate controlled on metoprolol (3) Prostate CA: Comment: S/P prostactectomy 2010, f/u Dr. Stratton Code(s): C61 - Malignant neoplasm of prostate Category: Medical Plan: Follow-up with urology (4) Positive colorectal cancer screening using Cologuard test: Comment: Colonoscopy [facility] ? report 2023 Code(s): R19.5 - Other fecal abnormalities Category: Medical Plan: Check colonoscopy report (5) Annual physical exam: Code(s): Z00.00 - Encounter for general adult medical examination without abnormal findings Category: Medical Plan: Well-balanced diet regular physical activity discussed with the patient (6) Hyperlipidemia: Code(s): E78.5 - Hyperlipidemia, unspecified Category: Medical Plan: cont statin Orders: Orders Complete Blood Count Auto Diff 1 Year D64.9 - Anemia, unspecified, E78.5 - Hyperlipidemia, unspecified, I25.10 - Atherosclerotic heart disease of [place] coronary artery without angina pectoris, Z00.00 - Encounter for general adult medical examination without abnormal findings TSH reflex Free T4 1 Year D64.9 - Anemia, unspecified, E78.5 - Hyperlipidemia, unspecified, I25.10 - Atherosclerotic heart disease of [place] coronary artery without angina pectoris, Z00.00 - Encounter for general adult medical examination without abnormal findings UA CC w/rflx Micro + Cult 1 Year E55.9 - Vitamin D deficiency, unspecified Comprehensive [place]. Panel Fast 1 Year D64.9 - Anemia, unspecified, E78.5 - Hyperlipidemia, unspecified, I25.10 - Atherosclerotic heart disease of [place] coronary artery without angina pectoris, Z00.00 - Encounter for general adult medical examination without abnormal findings Lipid Panel 1 Year D64.9 - Anemia, unspecified, E78.5 - Hyperlipidemia, unspecified, I25.10 - Atherosclerotic heart disease of [place] coronary artery without angina pectoris, Z00.00 - Encounter for general adult medical examination without abnormal findings Vitamin B12 and Folate 1 Year D64.9 - Anemia, unspecified, E78.5 - Hyperlipidemia, unspecified, I25.10 - Atherosclerotic heart disease of [place] coronary artery without angina pectoris, Z00.00 - Encounter for general adult medical examination without abnormal findings Vitamin D 25-OH Total 1 Year E55.9 - Vitamin D deficiency, unspecified
--- OUTSIDE RECORDS SUMMARY | 2025-03-27 14:20 | XMS_ITS | Clinical Summary ---
Author Organization [facility] Address [id number] [place] [id number] Care Team Providers Care Dynamometer Repairer Name Role Phone Unavailable Primary Care Provider Unavailabl e Surgical History Surgery Date Site/Laterality Comments CAROTID ENDARTERECTOMY 2019 Right PROCEDURE: HISTORICAL CAROTID ENDART; COMMENT: [facility] cardiology CARDIAC CATHETERIZATION PROCEDURE: HISTORICAL CARDIAC CATH Medical History Medical History Date Comments Hyperlipidemia 12/19/2014 DX:Hyperlipidemi a Prostate cancer ([facility] V24 , [facility] V28) 12/19/2014 DX:Prostate cancer ([facility]); CO MMENT: vesta w/ urology Dr. Stratton Cervical radiculopathy 12/19/2014 DX:Cervic al radiculopathy Erectile dysfunction 12/19/2014 DX:Erectile dysfunction Cervical spinal stenosis 12/19/2014 DX:Cerv ical spinal stenosis; COMMENT: C4-C5 Urinary incontinence 12/19/2014 DX:Urinary incontinence; COMMENT: Advance male sling placed SBO (small bowel obstruction ) ([facility] V24, [facility] V28) 12/19/2014 DX:SBO (small bowel obstruc tion) ([facility]); COMMENT: 10/10 secondary to adhesions Positive PPD 12/19/2014 DX:Positive PPD; COMMENT: Neg CXR 05/10 Vitamin D deficiency 12/19/2014 DX:Vitamin D deficiency Rotator cuff tear 12/19/2014 DX:Rotator cuf f tear; COMMENT: Right 05/08 Kidney stone 12/19/2014 DX:Kidney stone; COMMENT: 5x6.5 mm distal right ureteral stone 01/01 Anemia DX:Anemia Atrial fibrillation ([facility] V24, [facility] V28) DX:Atrial fibrillation ([facility]) ; COMMENT: [facility] Carotid stenosis 12/2018 DX:Carotid sten osis; COMMENT: [...]
== END 2025-03-27 14:29 | disposition home or self-care (01) ==
LOC: HO.HMCC 12:16
PROVIDERS: PCP Internal Medicine; Visit Provider Internal Medicine
DX: I42.9 Cardiomyopathy, unspecified (principal); I48.91 Unspecified atrial fibrillation; C61 Malignant neoplasm of prostate; R19.5 Other fecal abnormalities; Z00.00 Encounter for general adult medical examination without abnormal findings; E78.5 Hyperlipidemia, unspecified

== ENCOUNTER → 2025-03-27 12:15 | Outpatient (BNVA) | payer OTHER, SELFPAY | PROVIDERS: PCP Internal Medicine; Visit Provider Internal Medicine | DX: Z00.00 Encounter for general adult medical examination without abnormal findings (principal); I42.9 Cardiomyopathy, unspecified; I48.91 Unspecified atrial fibrillation; C61 Malignant neoplasm of prostate; R19.5 Other fecal abnormalities; E78.5 Hyperlipidemia, unspecified; Z79.899 Other long term (current) drug therapy | CPT/HCPCS: 96127 ==

== ENCOUNTER 2025-11-11 09:00 | Outpatient (REF) | payer OTHER, SELFPAY ==
--- OUTSIDE RECORDS SUMMARY | 2025-11-11 12:20 | XMS_ITS | Clinical Summary ---
Author Organization [facility] Address [id number] [place] [phone] Care Team Providers Care Case Management Specialist Name Role Phone Unavailable Primary Care Provider Unavailabl e Surgical History Surgery Date Site/Laterality Comments CAROTID ENDARTERECTOMY 2019 Right PROCEDURE: HISTORICAL CAROTID ENDART; COMMENT: [facility] cardiology CARDIAC CATHETERIZATION PROCEDURE: HISTORICAL CARDIAC CATH Medical History Medical History Date Comments Hyperlipidemia 12/19/2014 DX:Hyperlipidemi a Prostate cancer ([facility] V24 , [facility] V28) 12/19/2014 DX:Prostate cancer ([facility]); CO MMENT: vesta w/ urology Dr. Stratton Cervical radiculopathy 12/19/2014 DX:Cervic al radiculopathy Erectile dysfunction 12/19/2014 DX:Erectile dysfunction Cervical spinal stenosis 12/19/2014 DX:Cerv ical spinal stenosis; COMMENT: C4-C5 Urinary incontinence 12/19/2014 DX:Urinary incontinence; COMMENT: Advance male sling placed SBO (small bowel obstruction ) ([facility] V24, [facility] V28) 12/19/2014 DX:SBO (small bowel obstruc tion) ([facility]); COMMENT: 10/10 secondary to adhesions Positive PPD 12/19/2014 DX:Positive PPD; COMMENT: Neg CXR 05/10 Vitamin D deficiency 12/19/2014 DX:Vitamin D deficiency Rotator cuff tear 12/19/2014 DX:Rotator cuf f tear; COMMENT: Right 05/08 Kidney stone 12/19/2014 DX:Kidney stone; COMMENT: 5x6.5 mm distal right ureteral stone 01/01 Anemia DX:Anemia Atrial fibrillation ([facility] V24, [facility] V28) DX:Atrial fibrillation ([facility]) ; COMMENT: [facility] Carotid stenosis 12/2018 DX:Carotid sten osis; [...] on file Sexual Orientation Not on file Plan of Treatment Health Maintenance Due Date Last Done Comments DTaP,Tdap,and Td Vaccines (1 - Tdap) 02/09/1971 Pneumococcal Vaccine: 50+ Ye ars (1 of 1 - PCV) 02/09/2002 Zoster Vaccines (1 of 2) 02/09/2002 Depression Screening 11/27/2024 COVID-19 Vaccine (1 - 2024-2 6 season) 2025 Influenza Vaccine (#1) 2025 RSV Immunization Adult Patie nts (1 [...]
--- OUTSIDE RECORDS SUMMARY | 2025-11-11 12:21 | XMS_ITS | Encounter Summary ---
Author Organization [facility] Address [address] [place] [id number] Phone Care Team Providers Care Electrolysis Investigator Name Role Phone Belem Red DO Primary Car e Provider Encounter Details Date Type Department Care Team (Late st Contact Info) Description 02/20/2019 Procedure Pass [facility] [address] [place] [address] Social History Tobacco Use Types Packs/Day Years Used Date Smoking Tobacco: Never Smokeless Tobacco: Never Sex and Gender Information Value Date Recorded Sex Assigned at Not on file Legal Sex Male 10:36 PM EDT Gender Identity Not on file Sexual Orientation Not on file documented as of this encounter Plan of Treatment Not on file documented as of this encounter Visit Diagnoses Not on filedocumented in this encounter Care Teams Electrolysis Investigator Relationship Specialty Start Date End Date Beelm Red DO [address] [place] [address] PCP - General Internal Medicine 02/15/19 documented as of this encounter Additional Source Comments The information contained in this document represents components of the legal health record. It is not the complete legal health record.[facility]
--- OUTSIDE RECORDS SUMMARY | 2025-11-11 12:21 | XMS_ITS | Encounter Summary ---
Author Organization [facility] Address [address] [place] [address] Phone Care Team Providers Care Emergency Medicine Medical Director Name Role Phone [email or web address] frankel DO Primary Car e Provider Encounter Details Date Type Department Care Team (Latest Contact Info) Description 09/20/2019 Ancillary Orders [facility] [address] [place] [address] [place] [address] Anisha Butler PA [address] [place] [address] [email or web address] Atrial fibrillation, unspecified type Social History Tobacco Use Types Packs/Day Years Used Date Smoking Tobacco: Never Smokeless Tobacco: Never Sex and Gender Information Value Date Recorded Sex Assigned at Not on file Legal Sex Male 10:36 PM EDT Gender Identity Not on file Sexual Orientation Not on file documented as of this encounter Plan of Treatment Not on file documented as of this encounter Results * Holter Monitor 24 Hours (09/20/2019 11:54 AM EDT) Anatomical Region Laterality Modality Heart Other Narrative 09/20/2019 4:42 PM EDT 24-hour monitor: Baseline rhythm is atrial fibrillation, minimum heart rate 48, maximum 178, average 108 bpm. Longest pause duration is 2.29 seconds at there are occasional wide QRS complex beats which may represent PVCs or atrial fibrillation conducted aberrantly. No diary submitted. There are no patient event markers. Impression: Abnormal 24-hour monitor. Atrial fibrillation is present throughout the recording, details above. There is no diary submitted. There are no patient event markers. Procedure Note Miller Villa MD - 09/20/2019 24-hour monitor: Baseline rhythm is atrial fibrillation, minimum heartrate 48, maximum 178, average 108 bpm. Longest pause duration is 2.29seconds at there are occasional wide QRS complex beats which may representPVCs or atrial fibrillation conducted aberrantly. No diary submitted.There are no patient event markers. Impression: Abnormal 24-hour monitor. Atrial fibrillation is presentthroughout the recording, details above. There is no diary submitted.There are no patient event markers. Anisha [facility] Final Result documented in this encounter Visit Diagnoses Diagnosis Atrial fibrillation, unspecified type Atrial fibrillation, unspecified type documented in this encounter Care Teams Emergency Medicine Medical Director Relationship Specialty Start Date End Date Belem Red DO [address] [place] [address] PCP - General Internal Medicine 02/15/19 documented as of this encounter Additional Source Comments The information contained in this document represents components of the legal health record. It is not the complete legal health record.[facility]
--- OUTSIDE RECORDS SUMMARY | 2025-11-11 12:21 | XMS_ITS ---
Author Name [facility] Organization Unknown Care Team Organization Name Specialty Phone Email Start Date End Da te [facility] Termed, PROVIDER Primary Care 10/04/202206/27
--- OUTSIDE RECORDS SUMMARY | 2025-11-11 12:21 | XMS_ITS | Clinical Summary ---
Author Organization [facility] Address [address] [place] [id number] Phone Care Team Providers Care Senior Program Analyst Name Role Phone Belem Red DO Primary Car e Provider Allergies No known active allergies Medications dofetilide (TIKOSYN) 125 MCG capsule Take 125 mcg by mouth 2 (two) times a day. 3 capsules 2 x a day Active magnesium oxide (URO-MAG) 84.5 mg (140 mg) Cap Take 400 mg by mouth nightly at bedtime. Active metoprolol succinate (TOPROL-XL) 25 MG 24 hr tablet Take 25 mg by mouth daily. Active aspirin 81 MG EC tablet Take 81 mg by mouth nightly at bedtime. Active atorvastatin (LIPITOR) 80 MG tablet Take 80 mg by mouth nightly at bedtime. Active apixaban (ELIQUIS) 5 mg tabletIndicatio ns:resume tonight Take 5 mg by mouth 2 (two) times a day. Active aspirin 81 MG EC tablet Take 1 tablet (81 mg total) by mouth daily. 30 tablet 11 02/20/2019 Active Social History Tobacco Use Types Packs/Day Years Used Date Smoking Tobacco: Never Smokeless Tobacco: Never Education Answer Date Recorded Are you interested in more education? Not on leonie e 03/24/2023 Are you concerned about learning? Not on file 03/24/2023 No 03/24/2023 No 03/24/2023 Digital Access Answer Date Recorded No 04/22/2023 No 04/22/2023 No 04/22/2023 Reliable internet access at home? Not on file 04/22/2023 Device with a working camera? Not on file Sex and Gender Information Value Date Recorded Sex Assigned at Not on file Legal Sex Male 10:36 PM EDT Gender Identity Not on file Sexual Orientation Not on file Last Filed Vital Signs Vital Sign Reading Time Taken Comments Blood Pressure 96/83 02/20/2019 3:09 PM EDT Pulse 109 02/20/2019 9:29 AM EDT Temperature 36 C (96.8 F) 02/20/2019 12:30 PM EDT Respiratory Rate 16 02/20/2019 3:09 PM EDT Oxygen Saturation 98% 02/20/2019 3:09 PM EDT Inhaled Oxygen Concentration - - Weight - - Height - - Body Mass Index - - Plan of Treatment Health Maintenance Due Date Last Done Comments CREATININE LEVEL 1952 LIPID PANEL 1952 DEPRESSION SCREENING 1964 HEPATITIS C SCREENING 02/09/1970 COLOGUARD 02/09/1997 COLONOSCOPY 02/09/1997 COLORECTAL CANCER SCREENING 02/09/1997 FIT TEST 02/09/1997 FOBT 02/09/1997 SIGMOIDOSCOPY 02/09/1997 VIRTUAL COLONOSCOPY 02/09/1997 PNEUMOCOCCAL VACCINES (50+ years) (1 of 1 - PCV) 02/09/2002 ZOSTER VACCINES (1 of 2) 02/09/2002 INFLUENZA VACCINE (#1) 2025 09/25/2018 COVID-19 VACCINE (1 - 2024-2 6 season) 2025 RSV VACCINE (1 - 1-dose 75+ series) 02/09/2027 Adult Td,Tdap Booster 09/27/2031 09/27/2021 , 04/24/2014 SMOKING STATUS SCREENING (On ce After 26 Yrs) Completed 02/20/2019 HEPATITIS A VACCINES Aged Out No long er eligible based on patient's age to complete this topic HIB VACCINES Aged Out No longer eligi ble based on patient's age to complete this topic MENINGOCOCCAL VACCINES (ACWY) Aged Out No longer eligible based on patient's age to complete this topic MENINGOCOCCAL VACCINES (B) Aged Out N o longer eligible based on patient's age to complete this topic Medical Devices Not on file Insurance [facility] Care Teams Senior Program Analyst Relationship Specialty Start Date End Date Belem Red DO [address] [place] [address] PCP - General Internal Medicine 02/15/19 Additional Source Comments The information contained in this document represents components of the legal health record. It is not the complete legal health record.[facility]
== END 2025-11-11 09:01 | disposition home or self-care (01) ==
LOC: HO.HMGCLNP 09:00
PROVIDERS: PCP Internal Medicine; Visit Provider Internal Medicine
DX: A04.8 Other specified bacterial intestinal infections (principal)
CPT/HCPCS: 87338